=== PATIENT | female | born 1935 | race Caucasian/White ===

== ENCOUNTER 2019-03-31 18:36 | Emergency (ER) | payer MEDICARE, BC ==
[~2019-03-31] VITALS: Ht 154.9 cm; Wt 61.7 kg
--- NOTE | 2019-03-31 18:45 | NUR ---
bib family c/o ruq abdominal pain x 1 week. worst today. PATIENT A/OX4, NO DISTRESS NOTED, ATTACHED TO THE DEICER FINISHER. NEEDS ATTENDED, KEPT COMFORTABLE.
--- NOTE | 2019-03-31 19:17 | NUR ---
US TECH AT BEDSIDE.
[2019-03-31 19:21] LABS: BASOPHILS % (AUTO) 0.5 % (0.0-2.0); EOSINOPHILS % (AUTO) 0.5 % (0.0-6.0); HEMATOCRIT 40 % (33-45); HEMOGLOBIN 13.6 g/dL (11.5-14.8); LYMPHOCYTES # (AUTO) 1.5 /CMM (0.8-4.8); LYMPHOCYTES % (AUTO) 46.6 % (20.0-44.0); MEAN CORPUSCULAR HGB CONC 34 g/dl (31.0-36.0); MEAN CORPUSCULAR VOLUME 89 fL (82-100); MONOCYTES # (AUTO) 0.4 /CMM (0.1-1.30); NEUTROPHILS # (AUTO) 1.3 /CMM (1.8-8.9); NEUTROPHILS % (AUTO) 41.4 % (43.0-81.0); PLATELET COUNT (AUTO) 140 /CMM (150-450); RED BLOOD CELL COUNT(AUTO) 4.49 MIL/uL (4.0-5.2); WHITE BLOOD COUNT (AUTO) 3.3 K/uL (4.3-11.0)
--- NOTE | 2019-03-31 19:28 | NUR ---
ENDORSED TO LENA TAMAYO SLIM.
[2019-03-31] MEDS ORDERED: MORPHINE SULFATE INJ 2 MG/ML DISP.SYRIN IV ONE (19:30)
[2019-03-31] MEDS ORDERED: ONDANSETRON HCL/PF 4 MG/2 ML VIAL IVP ONE (19:30)
[2019-03-31] MEDS ORDERED: ONDANSETRON HCL/PF 4 MG/2 ML VIAL ONE (19:34)
[2019-03-31] MEDS ORDERED: MORPHINE SULFATE INJ 2 MG/ML DISP.SYRIN ONE (19:35)
[2019-03-31 19:37] LABS: ALANINE AMINOTRANSFERASE 26 U/L (12-78); ALBUMIN 3.9 g/dL (3.4-5.0); ALKALINE PHOSPHATASE 91 U/L (46-116); ASPARTATE AMINOTRANSFERASE 21 U/L (15-37); BILIRUBIN,DIRECT 0.1 mg/dL (0.0-0.2); BILIRUBIN,TOTAL 0.5 mg/dL (0.2-1.0); CALCIUM, SERUM 8.5 mg/dL (8.5-10.1); CARBON DIOXIDE 27 mmol/L (21-32); CHLORIDE 93 mmol/L (98-107); CREATININE 0.6 mg/dL (0.6-1.3); GLUCOSE 93 mg/dL (74-106); LIPASE 269 U/L (73-393); POTASSIUM 3.8 mmol/L (3.5-5.1); SODIUM SERUM 128 mmol/L (136-145); UREA NITROGEN, BLOOD 7 mg/dL (7-18)
--- NOTE | 2019-03-31 19:52 | NUR ---
pt left for CT
--- NOTE | 2019-03-31 19:59 | NUR ---
PT BROUGHT BACK FROM CT.
[2019-03-31 21:12] VITALS: BP 146/77
--- NOTE | 2019-03-31 21:12 | NUR ---
IV removed. Catheter intact and site benign. Pressure and 4x4 applied to site. No bleeding noted. Patient discharged to home in stable condition. Rx and Written and verbal after care instructions given. Patient verbalizes understanding of instruction.
== END 2019-03-31 21:12 | disposition home or self-care (01) ==
LOC: ER 18:37
DX: R10.11 Right upper quadrant pain (principal); I10 Essential (primary) hypertension; K21.9 Gastro-esophageal reflux disease without esophagitis; Z90.711 Acquired absence of uterus with remaining cervical stump; Z88.0 Allergy status to penicillin; Z91.040 Latex allergy status
CPT/HCPCS: 36415; 71045; 74176; 76705; 80048; 80076; 83690; 84484; 85025; 93005; 96374; 96375; 99284; J2270; J2405

== ENCOUNTER 2019-09-02 06:25 | Emergency (ER) | payer MEDICARE, BC ==
[~2019-09-02] VITALS: Ht 154.9 cm; Wt 52.2 kg
--- NOTE | 2019-09-02 06:30 | NUR ---
PT BIBDAUGTHER C/O R UPPER EXTREMITY NUMBNESS AND PAIN. PT DENIES RECENT TRAUMA. PT ALSO C/O GENERALIZED BODY ACHES. PT AAOX4. RESPIRATIONS EVEN AND UNLABORED. SKIN WARM AND INTACT. VITAL SIGNS STABLE. NO NEURO DEFICIT NOTED AT THIS TIME. NO ACUTE DISTRESS NOTED AT THIS TIME. PT PLACED ON MONITOR, WILL CONTINUE TO MONITOR.
--- NOTE | 2019-09-02 06:40 | NUR ---
DR. DALY AT BEDSIDE FOR EVALUATION
--- NOTE | 2019-09-02 07:06 | NUR ---
IV INITIATED LAC 20G. LABS DRAWN FROM SITE. HOME SALES SERVICE PROFESSIONAL AT BEDSIDE FOR COLLECTION. IV INTACT AND PATENT, PLACED ON SALINE LOCK
--- NOTE | 2019-09-02 07:17 | NUR ---
RADIOLOGY AT BEDSIDE FOR XRAY
[2019-09-02 07:18] LABS: BASOPHILS % (AUTO) 0.4 % (0.0-2.0); CALCIUM, SERUM 8.9 mg/dL (8.5-10.1); CARBON DIOXIDE 32 mmol/L (21-32); CHLORIDE 99 mmol/L (98-107); CREATININE 0.6 mg/dL (0.6-1.3); EOSINOPHILS % (AUTO) 0.5 % (0.0-6.0); GLUCOSE 98 mg/dL (74-106); HEMATOCRIT 41 % (33-45); HEMOGLOBIN 13.8 g/dL (11.5-14.8); LYMPHOCYTES # (AUTO) 1.4 /CMM (0.8-4.8); LYMPHOCYTES % (AUTO) 50.3 % (20.0-44.0); MEAN CORPUSCULAR HGB CONC 34 g/dl (31.0-36.0); MEAN CORPUSCULAR VOLUME 88 fL (82-100); MONOCYTES # (AUTO) 0.3 /CMM (0.1-1.30); MONOCYTES % (AUTO) 9.6 % (2.0-12.0); NEUTROPHILS # (AUTO) 1.1 /CMM (1.8-8.9); NEUTROPHILS % (AUTO) 39.2 % (43.0-81.0); PLATELET COUNT (AUTO) 139 /CMM (150-450); POTASSIUM 3.5 mmol/L (3.5-5.1); RED BLOOD CELL COUNT(AUTO) 4.66 MIL/uL (4.0-5.2); SODIUM SERUM 137 mmol/L (136-145); UREA NITROGEN, BLOOD 6 mg/dL (7-18); WHITE BLOOD COUNT (AUTO) 2.8 K/uL (4.3-11.0)
[2019-09-02 07:24] LABS: ALANINE AMINOTRANSFERASE 24 U/L (12-78); ALBUMIN 3.6 g/dL (3.4-5.0); ALKALINE PHOSPHATASE 76 U/L (46-116); ASPARTATE AMINOTRANSFERASE 15 U/L (15-37); BILIRUBIN,DIRECT 0.1 mg/dL (0.0-0.2); BILIRUBIN,TOTAL 0.5 mg/dL (0.2-1.0)
--- NOTE | 2019-09-02 07:29 | NUR ---
REPORT GIVEN TO CATRINA HENDRICKS FOR SLIM
[2019-09-02] MEDS ORDERED: ACETAMINOPHEN ES 500 MG TABLET ONE (07:43)
--- NOTE | 2019-09-02 07:49 | NUR ---
verbal order from Tylenol 1000mg PO x 1. Oder carried out and noted.
--- NOTE | 2019-09-02 07:53 | NUR ---
PATIENT STATED SHE'S UNABLE TO PROVIDE URINE SAMPLE.
[2019-09-02] MEDS ORDERED: ACETAMINOPHEN ES 500 MG TABLET PO ONE (08:00)
--- NOTE | 2019-09-02 08:38 | NUR ---
Assisted to wheelchair, patient a/ox4, breathing even and unlabored, no shortness of breath, vitals stable. No distress noted. Family at bedside. IV removed. Catheter intact and site benign. Pressure and 4x4 applied to site. No bleeding noted.Patient discharged to home in stable condition. Written and verbal after care instructions given. Patient verbalizes understanding of instruction.
[2019-09-02 08:39] VITALS: BP 150/78
== END 2019-09-02 08:39 | disposition home or self-care (01) ==
LOC: ER 06:26
DX: M60.812 Other myositis, left shoulder (principal); M54.9 Dorsalgia, unspecified; D69.6 Thrombocytopenia, unspecified; D72.819 Decreased white blood cell count, unspecified; I10 Essential (primary) hypertension; K21.9 Gastro-esophageal reflux disease without esophagitis; Z90.710 Acquired absence of both cervix and uterus; Z98.890 Other specified postprocedural states; Z88.0 Allergy status to penicillin; Z91.040 Latex allergy status
CPT/HCPCS: 36415; 71045-TC; 80048-TC; 80076-TC; 84484-TC; 85025-TC; 85730-TC